=== PATIENT | male | born 1940 | race Caucasian/White ===

== ENCOUNTER 2017-08-17 10:46 | Emergency (ER) | payer OTHER ==
[~2017-08-17] VITALS: Ht 170.2 cm; Wt 68.2 kg
[~2017-08-17 10:46] MED LIST: ASPIRIN EC81 MG PO; CARBIDOPA/LEVOD1 TA1 OR; ERYTHROMYCIN O3.5 GM OD; GLUCOSAMINE CHO1 CAP PO; MACROBID100 MG OR; SIMVASTATIN20 MG PO; VITAMIN C100 MG OR; VITAMIN D1000 UNI1 PO
[2017-08-17] MEDS ORDERED: MEDDOSEPAK PO (11:42)
[2017-08-17 12:12] VITALS: BP 140/70
== END 2017-08-17 12:28 | disposition home or self-care (01) | DRG 607 ==
LOC: ED 10:46
DX: L30.9 Dermatitis, unspecified (principal); R42 Dizziness and giddiness